=== PATIENT | female | born 1955 | race Two or more races ===

== ENCOUNTER 2018-02-13 08:37 | Outpatient (CLI) | payer OTHER | END 2018-02-13 08:52 | disposition home or self-care (01) | LOC: RAD 08:37 → MAMO-SONO 09:15 | DX: N20.1 Calculus of ureter (principal); N28.89 Other specified disorders of kidney and ureter ==

== ENCOUNTER 2019-04-10 09:47 | Outpatient (CLI) | payer OTHER | END 2019-04-10 11:21 | disposition home or self-care (01) | LOC: SONOGRAMA 09:47 | DX: E04.8 Other specified nontoxic goiter (principal); E03.8 Other specified hypothyroidism; J45.998 Other asthma ==

== ENCOUNTER 2020-12-26 09:30 | Outpatient (CLI) | payer OTHER | END 2020-12-26 09:45 | disposition home or self-care (01) | LOC: PPH VACUNA 09:30 | PROVIDERS: ATTEND Emergency Medicine Pediatric Emergency Medicine | DX: Z23 Encounter for immunization (principal) ==